=== PATIENT | female | born 1945 | race Caucasian/White ===

== ENCOUNTER → 2021-02-04 | Outpatient (CLI) | payer OTHER ==
[~2021-02-04] VITALS: Ht 165.1 cm; Wt 73.9 kg
== END ==
LOC: OPSV 12:00
DX: M81.0 Age-related osteoporosis without current pathological fracture (principal); M19.90 Unspecified osteoarthritis, unspecified site
CPT/HCPCS: 96372

== ENCOUNTER 2021-09-10 02:35 | Observation (INO) | payer OTHER ==
[~2021-09-10] VITALS: Ht 165.1 cm; Wt 67.1 kg
[~2021-09-10 02:35] MED LIST: PROLIA INJ60 MG/1 ML SC
[2021-09-10 03:27] LABS: HEMOGLOBIN 14.5 gm/dl (12.3-15.3); RED BLOOD COUNT 4.7 M/UL (4.00-5.10); WHITE BLOOD COUNT 4.8 K/UL (4.5-11.0)
[2021-09-10 03:53] LABS: BUN/CREATININE RATIO 19 (0-10)
[2021-09-10] MEDS ORDERED: MULTIVITAMIN1 EACH PO (14:04)
[2021-09-10] MEDS ORDERED: ELDERBERRY-VIT1 EACH PO (14:04)
[2021-09-10] MEDS ORDERED: CALCIUM CARBON600 MG PO (14:05)
[2021-09-10] MEDS ORDERED: ATORVASTATIN CA20 MG PO (16:45)
[2021-09-10] MEDS ORDERED: ASPIRIN EC81 MG PO (16:45)
== END 2021-09-10 17:35 | disposition home or self-care (01) ==
LOC: ER1 02:35 → CDU 08:31
PROVIDERS: Student in an Organized Health Care Education/Training Program; ADMIT Internal Medicine
DX: I63.9 Cerebral infarction, unspecified (principal); I10 Essential (primary) hypertension; E78.5 Hyperlipidemia, unspecified; Z20.822 Contact with and (suspected) exposure to COVID-19; Z88.8 Allergy status to other drugs, medicaments and biological substances; Z79.899 Other long term (current) drug therapy
CPT/HCPCS: ECHO; 70450; 70496; 70498; 70551; 71045; 80053; 80061; 82550; 82553; 83874; 84484; 85025; 93005; 93306; 99285; G0378; Q9967; U0002